=== PATIENT | female | born 1970 | race Caucasian/White ===

== ENCOUNTER 2017-02-19 18:48 | Emergency (ER) | payer MEDICAID ==
[~2017-02-19] VITALS: Ht 160 cm; Wt 68.2 kg
[2017-02-19] MEDS ORDERED: ASPI81TA39 PO (19:12)
[2017-02-19] MEDS ORDERED: GLIP5TAB11 PO (19:12)
[2017-02-19] MEDS ORDERED: AMIT50TA3 PO (19:12)
[2017-02-19] MEDS ORDERED: INSU100V12 SQ ×2 (19:12)
[2017-02-19] MEDS ORDERED: GABA-531 PO (19:12)
[2017-02-19 19:13] LABS: GLUCOSE,POINT OF CARE 371 MG/DL (70-110)
[2017-02-19] MEDS ORDERED: CEPHALEXIN MONOHYDRATE 500 MG CAPSULE PO ONE (20:30)
[2017-02-19 20:53] VITALS: BP 140/87
== END 2017-02-19 20:54 | disposition home or self-care (01) ==
LOC: EMS 18:57
DX: H60.11 Cellulitis of right external ear (principal); E11.65 Type 2 diabetes mellitus with hyperglycemia; F17.210 Nicotine dependence, cigarettes, uncomplicated; Z79.4 Long term (current) use of insulin
CPT/HCPCS: 82962; 99283

== ENCOUNTER 2017-04-17 20:44 | Emergency (ER) | payer MEDICAID ==
[~2017-04-17] VITALS: Ht 160 cm; Wt 65.9 kg
[~2017-04-17 20:44] MED LIST: AMIT50TA3 PO; ASPI81TA39 PO; GABA-531 PO; GLIP5TAB11 PO; INSU100V12 SQ
[2017-04-17 21:18] LABS: GLUCOSE,POINT OF CARE 600 MG/DL (70-110)
[2017-04-17] MEDS ORDERED: SODIUM CHLORIDE 0.9% 1,000 ML IV ONE (21:45)
[2017-04-17 21:59] LABS: BASOPHILS % (AUTO) 0.5 % (0.0-2.0); EOSINOPHILS % (AUTO) 0.8 % (1.0-6.0); HEMATOCRIT 35.4 % (36-46); HEMOGLOBIN 12.1 g/dL (12.0-16.0); LYMPHOCYTES # (AUTO) 0.4 K/uL (1.0-4.8); LYMPHOCYTES % (AUTO) 3.5 % (22.0-44.0); MEAN CORPUSCULAR HEMOGLOBIN 30.2 pg (26.0-34.0); MEAN CORPUSCULAR HGB CONC 34.1 G/dL (31.0-37.0); MEAN CORPUSCULAR VOLUME 89 fL (80-100); MONOCYTES # (AUTO) 0.8 K/uL (0.1-1.0); MONOCYTES % (AUTO) 6.8 % (2.0-9.0); NEUTROPHILS # (AUTO) 10.1 K/uL (1.8-7.7); RED CELL DISTRIBUTION WIDTH 13.9 % (11.5-14.5)
[2017-04-17 22:16] LABS: ALANINE AMINOTRANSFERASE 20 U/L (12-78); ALBUMIN 3.2 g/dL (3.4-5.0); ALKALINE PHOSPHATASE 190 U/L (46-116); ANION GAP 5 mmol/L (8-16); ASPARTATE AMINOTRANSFERASE 14 U/L (15-37); BILIRUBIN,TOTAL 0.7 mg/dL (0.1-1.0); CARBON DIOXIDE 29 mmol/L (22-29); CHLORIDE 92 mmol/L (98-107); CREATININE 0.94 mg/dL (0.60-1.30); GLOMERULAR FILTR. RATE CALC > 60 mL/min (>60); POTASSIUM 4.1 mmol/L (3.5-5.1); SODIUM SERUM 126 mmol/L (136-145); TOTAL PROTEIN, SERUM 7.5 g/dL (6.4-8.2); UREA NITROGEN, BLOOD 23 mg/dL (7-18)
[2017-04-17 22:25] LABS: GLUCOSE,RANDOM 575 mg/dL (70-110)
[2017-04-17 22:34] LABS: NEUTROPHILS % (AUTO) 88.4 % (40.0-70.0); PLATELET COUNT (AUTO) 14 K/uL (150-450)
[2017-04-17 23:10] LABS: APPEARANCE,URINE CLOUDY (CLEAR); BILIRUBIN,URINE NEGATIVE (NEGATIVE); GLUCOSE, URINE (UA) >=1000 mg/dL (NEGATIVE); KETONES,URINE NEGATIVE (NEGATIVE); LEUKOCYTE ESTERASE ,URINE NEGATIVE (NEGATIVE); NITRATE,URINE POSITIVE (NEGATIVE); OCCULT BLOOD,URINE SMALL (NEGATIVE); PROTEIN,URINE TRACE (NEGATIVE); UROBILINOGEN,URINE 0.2 mg/dL (<=1.0)
[2017-04-17] MEDS ORDERED: ONDANSETRON HCL 4 MG/2 ML VIAL IVP ONE (23:15)
[2017-04-17] MEDS ORDERED: INSULIN REGULAR, HUMAN 100 UNITS/ML IVP ONE (23:15)
[2017-04-17] MEDS ORDERED: KETOROLAC TROMETHAMINE 30 MG/ML VIAL IVP ONE (23:15)
[2017-04-17] MEDS ORDERED: SODIUM CHLORIDE 0.9% 2,000 ML IV ONE (23:15)
[2017-04-17 23:46] LABS: INFLUENZA TYPE A NEGATIVE FOR TYPE A (NEGATIVE); INFLUENZA TYPE B NEGATIVE FOR TYPE B (NEGATIVE)
[2017-04-17 23:51] LABS: BACTERIA,URINE Moderate /HPF (None Seen); SQUAMOUS EPITHELIAL CELL,UR Few /LPF (None Seen)
[2017-04-18 00:27] LABS: GLUCOSE,POINT OF CARE 228 MG/DL (70-110)
[2017-04-18 00:54] VITALS: BP 121/67
== END 2017-04-18 01:37 | disposition home or self-care (01) ==
LOC: EMS 20:47
DX: J40 Bronchitis, not specified as acute or chronic (principal); J06.9 Acute upper respiratory infection, unspecified; E11.65 Type 2 diabetes mellitus with hyperglycemia; D69.6 Thrombocytopenia, unspecified; F17.210 Nicotine dependence, cigarettes, uncomplicated; Z79.82 Long term (current) use of aspirin; Z79.4 Long term (current) use of insulin
CPT/HCPCS: 36415; 71045; 80053; 81001; 82962; 83605; 84703; 85025; 87077; 87086; 87186; 87804; 96361; 96374; 96375; 99285; 99406; J1815; J1885; J2405; J7030

== ENCOUNTER 2017-10-17 22:17 | Emergency (ER) | payer MEDICAID ==
[~2017-10-17] VITALS: Ht 160 cm; Wt 65.0 kg
[2017-10-17] MEDS ORDERED: METF850T2 PO (23:01)
[2017-10-17] MEDS ORDERED: INSLAN SQ (23:01)
[2017-10-17 23:09] LABS: GLUCOSE,POINT OF CARE 234 MG/DL (70-110)
[2017-10-17] MEDS ORDERED: PERTUSS(ACELL),DIPH,TET VAC/PF 0.5 ML VIAL IM ONE (23:45)
[2017-10-18 02:08] VITALS: BP 132/88
== END 2017-10-18 02:11 | disposition home or self-care (01) ==
LOC: EMS 22:18
DX: L03.115 Cellulitis of right lower limb (principal); E11.9 Type 2 diabetes mellitus without complications; F17.210 Nicotine dependence, cigarettes, uncomplicated; Z79.4 Long term (current) use of insulin
CPT/HCPCS: 90471; 90715; 99284

== ENCOUNTER 2017-11-05 15:39 | Emergency (ER) | payer MEDICAID ==
[~2017-11-05] VITALS: Ht 162.6 cm; Wt 54.5 kg
[~2017-11-05 15:39] MED LIST changes: -AMIT50TA3 PO; -ASPI81TA39 PO; -GABA-531 PO; -GLIP5TAB11 PO; +INSLAN SQ; -INSU100V12 SQ; +METF850T2 PO
[2017-11-05 21:19] LABS: BASOPHILS % (AUTO) 0.6 % (0.0-2.0); EOSINOPHILS % (AUTO) 9.8 % (1.0-6.0); HEMATOCRIT 29.5 % (36-46); HEMOGLOBIN 10.4 g/dL (12.0-16.0); LYMPHOCYTES # (AUTO) 1.6 K/uL (1.0-4.8); LYMPHOCYTES % (AUTO) 30.2 % (22.0-44.0); MEAN CORPUSCULAR HEMOGLOBIN 31.9 pg (26.0-34.0); MEAN CORPUSCULAR HGB CONC 35.5 G/dL (31.0-37.0); MEAN CORPUSCULAR VOLUME 90 fL (80-100); MONOCYTES # (AUTO) 0.5 K/uL (0.1-1.0); MONOCYTES % (AUTO) 10.1 % (2.0-9.0); NEUTROPHILS # (AUTO) 2.7 K/uL (1.8-7.7); NEUTROPHILS % (AUTO) 49.3 % (40.0-70.0); RED BLOOD CELL COUNT(AUTO) 3.27 MIL/uL (4.00-5.20); RED CELL DISTRIBUTION WIDTH 13.6 % (11.5-14.5)
[2017-11-05 21:26] LABS: CALCIUM, TOTAL 9.2 mg/dL (8.8-10.5); CREATININE 1.25 mg/dL (0.60-1.30); POTASSIUM 4.4 mmol/L (3.5-5.1)
[2017-11-05 21:27] LABS: C-REACTIVE PROTEIN QUANT 0.61 mg/dL (0.00-0.30)
[2017-11-05 21:37] LABS: PLATELET COUNT (AUTO) 37 K/uL (150-450)
[2017-11-05 22:28] LABS: ERYTHROCYTE SEDIMENTATION RATE 50 MM/HR (0-20)
[2017-11-05 22:53] VITALS: BP 124/77
[2017-11-05] MEDS ORDERED: HYDROCODONE/ACETAMINOPHEN 5-325 MG TABLET PO ONE (23:00)
== END 2017-11-05 23:14 | disposition home or self-care (01) ==
LOC: EMS 15:40
DX: E11.621 Type 2 diabetes mellitus with foot ulcer (principal); L97.529 Non-pressure chronic ulcer of other part of left foot with unspecified severity; F17.210 Nicotine dependence, cigarettes, uncomplicated; Z79.4 Long term (current) use of insulin
CPT/HCPCS: 85651; 86140; 99285